=== PATIENT | female | born 1935 | race Caucasian/White ===

== ENCOUNTER → 2016-08-13 | Outpatient (CLI) | payer MEDICARE, OTHER ==
[2016-02-08 07:49] VITALS: BP 136/66
[~2016-08-13] MED LIST: ATOR20TA58 PO; CALC500T50 PO; CHOL10003 PO; CRAN450T2 PO; DOCU-27 PO; FLUO20CA8 PO; METH500T5 PO; MV,1TABL3 PO; OMEG10006 PO; OMEP20TA PO; UBID100C26 PO
--- NOTE | 2016-08-13 16:26 | RAD ---
PROCEDURE MRI of the lumbar spine without contrast 08/13/2016 HISTORY Low back pain with bilateral leg weakness and incontinence. TECHNIQUE Unenhanced T1 weighted, T2 weighted and inversion recovery sagittal and T2 weighted and T1 weighted axial images of the lumbar spine were obtained. FINDINGS Comparison is made to radiographs of the lumbar spine dated 05/08/2016. Very mild S-shaped curvature of the thoracolumbar spine is noted. Degenerative signal changes are seen involving all of the discs of the lumbar spine. Degenerative signal changes are seen within the marrow surrounding these discs. Loss of height of the L1-2, L3-4 and L4-5 discs is noted. Mild anterolisthesis of L3 in relation to L4 is noted. The conus medullaris is normal in morphology, position, and signal characteristics. A 1.5 centimeter perineural cyst is seen within the sacral spinal canal. At the L1-2 and L2-3 disc spaces there are mild generalized disc bulges. Degenerative changes are seen involving the facet joints bilaterally. There is mild ligamentum flavum hypertrophy bilaterally. These findings when combined do not result in significant central spinal canal or neural foraminal stenosis. At the L3-4 disc space there is a mild to moderate generalized disc bulge. Degenerative changes are seen involving the facet joints bilaterally. There is mild ligamentum flavum hypertrophy bilaterally. These findings when combined with prominence of the posteior epidural fat result in mild central spinal canal stenosis. No neural foraminal stenosis is seen. At the L4-5 disc space there is a mild generalized disc bulge. Degenerative changes are seen involving the facet joints bilaterally. There is mild ligamentum flavum hypertrophy bilaterally. These findings when combined do not result in significant central spinal canal or neural foraminal stenosis. At L5-S1 disc space there is a mild generalized disc bulge. Degenerative changes are seen involving the facet joints bilaterally. These findings when combined do not result in significant central spinal canal or neural foraminal stenosis. IMPRESSION The changes of degenerative disc disease are seen involving the lumbar spine. These findings result in mild central spinal canal stenosis at L3-4. No neural foraminal stenosis is seen. Electronically signed by: Rboerto Damon MD (Aug 13, 2016 16:24:29)
== END | disposition home or self-care (01) ==
LOC: MRI 12:28
PROVIDERS: ATTEND Orthopaedic Surgery Sports Medicine
DX: M51.36 Other intervertebral disc degeneration, lumbar region (principal); M48.06 Spinal stenosis, lumbar region
CPT/HCPCS: 72148

== ENCOUNTER 2018-05-29 17:28 | Emergency (ER) | payer MEDICARE ==
[~2018-05-29] VITALS: Ht 160 cm; Wt 68.0 kg
[~2018-05-29 17:28] MED LIST changes: -CALC500T50 PO; +CALC500T54 PO; +DOCU-109 PO; -DOCU-27 PO; -OMEP20TA PO; +OMEP20TA8 PO
--- NOTE | 2018-05-29 18:16 | PHYS DOC ---
Past Medical History Past Medical History: Anemia, Depression, GERD, High Cholesterol, Kidney Stone , P.U.D. Past Surgical History: Appendectomy, Cholecystectomy, Tubal ligation, Other Additional Past Surgical Histo: DENTAL IMPLANTS Alcohol Use: None Drug Use: None Adult General Chief Complaint Chief Complaint: RECTAL BLEED [facility] HPI Patient is a 83 year old female who presents with a complaint of bright red rectal bleeding. No abdominal pain. However, after the BM she noted bright red blood streaking her stool, on the toilet paper and dripping into the toilet. The patient also reports that 3 days ago she also had an episode of some bright red blood in her stool following a BM. She reports a hx of constipation and hemorrhoids. Reports that these episodes are similar to bleeding she has experienced with hemorrhoids in the past. She takes a stool softener daily. She denies any current abd pain, she also denies CP, SOB, weakness, lightheadedness , fevers, chills, vomiting, nausea and melena. No other Sx or complaints at this time. Review of Systems Review of Systems Constitutional: Denies fever or chills [] Eyes: Denies change in visual acuity, redness, or eye pain [] HENT: Denies nasal congestion or sore throat [] Respiratory: Denies cough or shortness of breath [] Cardiovascular: No additional information not addressed in [facility] [] GI: +bright red hematochezia, + constipation, No N/V/D. No abd pain : Denies dysuria or hematuria [] Musculoskeletal: Denies back pain or joint pain [] Integument: Denies rash or skin lesions [] Neurologic: Denies headache, focal weakness or sensory changes [] Endocrine: Denies polyuria or polydipsia [] All other systems were reviewed and found to be within normal limits, except as documented in this note. Allergies Allergies Allergies Coded Allergies Type Severity Reaction Last Updated Verified Sulfa (Sulfonamide Antibiotics) Allergy Intermediate 02/07/16 Yes iodine Allergy Intermediate 07/14/14 No shellfish derived Allergy Intermediate 07/14/14 Yes Physical Exam Physical Exam Constitutional: Well developed, well nourished, no acute distress, non-toxic appearance. [] HENT: Normocephalic, atraumatic, bilateral external ears normal, oropharynx moist, no oral exudates, nose normal. [] Eyes: PERRLA, EOMI, conjunctiva normal, no discharge. [] Neck: Normal range of motion, no tenderness, supple, no stridor. [] Cardiovascular:Heart rate regular rhythm, no murmur [] Lungs & Thorax: Bilateral breath sounds clear to auscultation [] Abdomen: Bowel sounds normal, soft, no tenderness, no masses, no pulsatile masses. [] Rectal exam: Brown stool heme positive by testing according to the lab. There is what I believe is a palpable internal hernia. No anus scope in the emergency room AVAILABLE Skin: Warm, dry, no erythema, no rash. [] Back: No tenderness, no CVA tenderness. [] Extremities: No tenderness, no cyanosis, no clubbing, ROM intact, no edema. [] Neurologic: Alert and oriented X 3, normal motor function, normal sensory function, no focal deficits noted. [] Psychologic: Affect normal, judgement normal, mood normal. [] Current Patient Data Vital Signs Vital Signs Date Time Temp Pulse Resp B/P (MAP) Pulse Ox O2 Delivery O2 Flow Rate FiO2 05/29/18 18:58 64 136/58 (84) 95 Room Air 05/29/18 17:41 97.8 18 97.8 Lab Values Laboratory Tests Test 05/29/18 18:19 White Blood Count 6.6 x10^3/uL (4.0-11.0) Red Blood Count 3.67 x10^6/uL (3.50-5.40) Hemoglobin 11.9 g/dL (12.0-15.5) L Hematocrit 34.2 % (36.0-47.0) L Mean Corpuscular Volume 93 fL (79-100) Mean Corpuscular Hemoglobin 32 pg (25-35) Mean Corpuscular Hemoglobin Concent 35 g/dL (31-37) Red Cell Distribution Width 12.8 % (11.5-14.5) Platelet Count 231 x10^3/uL (140-400) Neutrophils (%) (Auto) 49 % (31-73) Lymphocytes (%) (Auto) 38 % (24-48) Monocytes (%) (Auto) 9 % (0-9) Eosinophils (%) (Auto) 4 % (0-3) H Basophils (%) (Auto) 1 % (0-3) Neutrophils # (Auto) 3.2 x10^3uL (1.8-7.7) Lymphocytes # (Auto) 2.5 x10^3/uL (1.0-4.8) Monocytes # (Auto) 0.6 x10^3/uL (0.0-1.1) Eosinophils # (Auto) 0.2 x10^3/uL (0.0-0.7) Basophils # (Auto) 0.0 x10^3/uL (0.0-0.2) Stool Occult Blood Positive (NEG) Sodium Level 138 mmol/L (136-145) Potassium Level 3.7 mmol/L (3.5-5.1) Chloride Level 103 mmol/L (98-107) Carbon Dioxide Level 28 mmol/L (21-32) Anion Gap 7 (6-14) Blood Urea Nitrogen 19 mg/dL (7-20) Creatinine 0.8 mg/dL (0.6-1.0) Estimated GFR (Cockcroft-Gault) 68.8 BUN/Creatinine Ratio 24 (6-20) H Glucose Level 117 mg/dL (70-99) H Calcium Level 9.0 mg/dL (8.5-10.1) Total Bilirubin 0.2 mg/dL (0.2-1.0) Aspartate Amino Transferase (AST) 17 U/L (15-37) Alanine Aminotransferase (ALT) 23 U/L (14-59) Alkaline Phosphatase 88 U/L (46-116) Total Protein 7.0 g/dL (6.4-8.2) Albumin 3.5 g/dL (3.4-5.0) Albumin/Globulin Ratio 1.0 (1.0-1.7) Laboratory Tests 05/29/18 18:19 Laboratory Tests 05/29/18 18:19 EKG EKG [] Radiology/Procedures Radiology/Procedures [] Course & Med Decision Making Course & Med Decision Making Pertinent Labs and Imaging studies reviewed. (See chart for details) Assessment: 83 y/o female presents with a complaint of bright red rectal bleeding 1. Hemorrhoids 2. Constipation 3. Dehydration Plan: Rectal exam Fecal occult blood Labs-CBC, CMP I suspect hemorrhoid she just had some drops of blood today hemoglobin is stable I believe I feel an internal hemorrhoid. She was given prescription for conservative therapy and instructed and return precautions for any signs of risk GI bleeding. Terri Disclaimer Dragon Disclaimer This electronic medical record was generated, in whole or in part, using a voice recognition dictation system. Departure Departure Impression: Primary Impression: Bright red blood per rectum Disposition: HOME, SELF-CARE Condition: STABLE Referrals: JIMY MORGAN MD (PCP) Scripts Hydrocortisone Acetate (ANUSOL-HC) 25 Mg Supp.rect 1 SUPP RC BID, #14 SUPP Prov: TAQUERIA NJ MD 05/29/18 Psyllium Husk (METAMUCIL) 0.52 Gm Capsule 0.52 GM PO DAILY, #30 CAP Prov: TAQUERIA NJ MD 05/29/18 TAQUERIA NJ MD May 29, 2018 18:16
[2018-05-29 18:40] LABS: BASO % 1 % (0-3); EOS # 0.2 x10^3/uL (0.0-0.7); EOS % 4 % (0-3); HEMATOCRIT 34.2 % (36.0-47.0); HEMOGLOBIN 11.9 g/dL (12.0-15.5); LYMPH # 2.5 x10^3/uL (1.0-4.8); LYMPH % 38 % (24-48); MEAN CORPUSCULAR HEMOGLOBIN 32 pg (25-35); MEAN CORPUSCULAR HGB CONC 35 g/dL (31-37); MEAN CORPUSCULAR VOLUME 93 fL (79-100); MONO # 0.6 x10^3/uL (0.0-1.1); MONO % 9 % (0-9); NEUT # 3.2 x10^3uL (1.8-7.7); NEUT % 49 % (31-73); PLATELET COUNT 231 x10^3/uL (140-400); RED BLOOD COUNT 3.67 x10^6/uL (3.50-5.40); RED CELL DISTRIBUTION WIDTH 12.8 % (11.5-14.5); WHITE BLOOD COUNT 6.6 x10^3/uL (4.0-11.0)
[2018-05-29 18:44] LABS: FECAL OB PT POSITIVE (NEG)
[2018-05-29 18:47] LABS: CREATININE 0.8 mg/dL (0.6-1.0); GFR 68.8; POTASSIUM 3.7 mmol/L (3.5-5.1)
[2018-05-29 18:52] LABS: ALBUMIN 3.5 g/dL (3.4-5.0); TOTAL BILIRUBIN 0.2 mg/dL (0.2-1.0)
[2018-05-29] MEDS ORDERED: PSYL0.5215 PO (18:56)
[2018-05-29] MEDS ORDERED: HYDR25SU18 RC (18:56)
[2018-05-29 18:58] VITALS: BP 136/58
== END 2018-05-29 19:06 | disposition home or self-care (01) ==
LOC: ER 17:28
DX: K62.5 Hemorrhage of anus and rectum (principal); K21.9 Gastro-esophageal reflux disease without esophagitis; E78.00 Pure hypercholesterolemia, unspecified; Z90.89 Acquired absence of other organs; Z90.49 Acquired absence of other specified parts of digestive tract; Z98.51 Tubal ligation status; Z88.2 Allergy status to sulfonamides; Z91.041 Radiographic dye allergy status; Z91.013 Allergy to seafood
CPT/HCPCS: 36415; 80053; 82274; 85025; 99283

== ENCOUNTER 2019-05-22 02:40 | Inpatient (IN) | payer MEDICARE ==
[~2019-05-22] VITALS: Ht 160 cm; Wt 72.6 kg
[~2019-05-22 02:40] MED LIST changes: +HYDR25SU18 RC; +PSYL0.5215 PO
[2019-05-22] MEDS ORDERED: ONDANSETRON PF 4 MG/2 ML VIAL. ONE (02:57)
[2019-05-22] MEDS ORDERED: ONDANSETRON PF 4 MG/2 ML VIAL. IVP ONE (03:30)
[2019-05-22] MEDS ORDERED: IV NORMAL SALINE 1000ML BAG 1,000 ML IV ONE (03:30)
--- NOTE | 2019-05-22 03:34 | PHYS DOC ---
Past Medical History Past Medical History: Anemia, Depression, GERD, High Cholesterol, Kidney Stone, P.U.D. Past Surgical History: Appendectomy, Cholecystectomy, Tubal ligation, Other Additional Past Surgical Histo: DENTAL IMPLANTS Alcohol Use: None Drug Use: None Adult General Chief Complaint Chief Complaint: NAUSEA/VOMITING/[facility] HPI HPI 84-year-old female presents to the emergency department with complaints of vomiting and nausea. Patient states this started around 6 PM last night. She de nies any fever, abdominal pain, chest pain, shortness of breath. She denies any diarrhea. She does describe some bloating as well as gassiness. Her last BM was yesterday. She states she has a history of constipation. Patient denies any sick contacts. Nothing makes her symptoms worse, nothing makes her symptoms better. She states she's been unable to keep any liquids down. Review of Systems Review of Systems Constitutional: Denies fever or chills [] Respiratory: Denies cough or shortness of breath [] Cardiovascular: No additional information not addressed in HPI [] GI: abdominal bloating, nausea, vomiting, no bloody stools or diarrhea [] : Denies dysuria or hematuria [] Integument: Denies rash or skin lesions [] Neurologic: Denies headache, focal weakness or sensory changes [] All other systems were reviewed and found to be within normal limits, except as documented in this note. Current Medications Current Medications Current Medications Medications (Trade) Dose Ordered Sig/Juliette Start Time Stop Time Status Last Admin Dose Admin Ketorolac Tromethamine (Toradol 30mg Vial) 30 mg 1X ONCE 05/22/19 04:00 05/22/19 03:56 DC Ondansetron HCl (Zofran) 4 mg 1X ONCE 05/22/19 04:00 05/22/19 04:01 DC 05/22/19 04:21 4 MG Sodium Chloride 1,000 ml @ 1,000 mls/hr 1X ONCE 05/22/19 03:30 05/22/19 04:29 DC 05/22/19 03:00 1,000 MLS/HR Allergies Allergies Allergies Coded Allergies Type Severity Reaction Last Updated Verified Sulfa (Sulfonamide Antibiotics) Allergy Intermediate 02/07/16 Yes iodine Allergy Intermediate 07/14/14 No shellfish derived Allergy Intermediate 07/14/14 Yes Physical Exam Physical Exam Constitutional: Well developed, well nourished, no acute distress, non-toxic appearance. [] HENT: Normocephalic, atraumatic, bilateral external ears normal, oropharynx moist, no oral exudates, nose normal. [] Eyes: PERRLA, EOMI, conjunctiva normal, no discharge. [] Cardiovascular: Heart rate regular rhythm, no murmur [] Lungs & Thorax: Bilateral breath sounds clear to auscultation [] Abdomen: Bowel sounds normal, soft, no tenderness, no masses, no pulsatile masses. [] Skin: Warm, dry, no erythema, no rash. [] Back: No tenderness, no CVA tenderness. [] Extremities: No tenderness, no edema. [] Neurologic: Alert and oriented X 3, no focal deficits noted. [] Psychologic: Affect normal, judgement normal, mood normal. [] Current Patient Data Vital Signs Vital Signs Date Time Temp Pulse Resp B/P (MAP) Pulse Ox O2 Delivery O2 Flow Rate FiO2 05/22/19 04:13 94 25 132/59 (83) Room Air 05/22/19 03:13 96 05/22/19 02:45 97.9 97.9 Lab Values Laboratory Tests Test 05/22/19 02:53 05/22/19 04:15 White Blood Count 13.2 x10^3/uL (4.0-11.0) H Red Blood Count 4.12 x10^6/uL (3.50-5.40) Hemoglobin 12.7 g/dL (12.0-15.5) Hematocrit 38.2 % (36.0-47.0) Mean Corpuscular Volume 93 fL (79-100) Mean Corpuscular Hemoglobin 31 pg (25-35) Mean Corpuscular Hemoglobin Concent 33 g/dL (31-37) Red Cell Distribution Width 13.2 % (11.5-14.5) Platelet Count 223 x10^3/uL (140-400) Neutrophils (%) (Auto) 94 % (31-73) H Lymphocytes (%) (Auto) 2 % (24-48) L Monocytes (%) (Auto) 3 % (0-9) Eosinophils (%) (Auto) 0 % (0-3) Basophils (%) (Auto) 0 % (0-3) Neutrophils # (Auto) 12.5 x10^3/uL (1.8-7.7) H Lymphocytes # (Auto) 0.3 x10^3/uL (1.0-4.8) L Monocytes # (Auto) 0.4 x10^3/uL (0.0-1.1) Eosinophils # (Auto) 0.0 x10^3/uL (0.0-0.7) Basophils # (Auto) 0.0 x10^3/uL (0.0-0.2) Segmented Neutrophils % 79 % (35-66) H Band Neutrophils % 18 % (0-9) H Lymphocytes % 1 % (24-48) L Monocytes % 2 % (0-10) Platelet Estimate Adequate (ADEQUATE) Sodium Level 141 mmol/L (136-145) Potassium Level 4.0 mmol/L (3.5-5.1) Chloride Level 101 mmol/L (98-107) Carbon Dioxide Level 28 mmol/L (21-32) Anion Gap 12 (6-14) Blood Urea Nitrogen 25 mg/dL (7-20) H Creatinine 0.8 mg/dL (0.6-1.0) Estimated GFR (Cockcroft-Gault) 68.7 BUN/Creatinine Ratio 31 (6-20) H Glucose Level 219 mg/dL (70-99) H Calcium Level 9.0 mg/dL (8.5-10.1) Total Bilirubin 0.6 mg/dL (0.2-1.0) Aspartate Amino Transferase (AST) 22 U/L (15-37) Alanine Aminotransferase (ALT) 26 U/L (14-59) Alkaline Phosphatase 83 U/L (46-116) Total Protein 7.7 g/dL (6.4-8.2) Albumin 4.1 g/dL (3.4-5.0) Albumin/Globulin Ratio 1.1 (1.0-1.7) Urine Collection Type U cath Urine Color Yellow Urine Clarity Clear Urine pH 5.5 Urine Specific [place] 1.025 Urine Protein Negative mg/dL (NEG-TRACE) Urine Glucose (UA) Negative mg/dL (NEG) Urine Ketones (Stick) 15 mg/dL (NEG) Urine Blood Negative (NEG) Urine Nitrite Negative (NEG) Urine Bilirubin Negative (NEG) Urine Urobilinogen Dipstick 0.2 mg/dL (0.2 mg/dL) Urine Leukocyte Esterase Negative (NEG) Urine RBC Occ /HPF (0-2) Urine WBC Occ /HPF (0-4) Urine Squamous Epithelial Cells Occ /LPF Urine Bacteria 0 /HPF (0-FEW) Urine Mucus Marked /LPF Laboratory Tests 05/22/19 02:53 Laboratory Tests 05/22/19 02:53 EKG EKG [] Radiology/Procedures Radiology/Procedures [facility] [address] [place] [address] IMAGING REPORT Signed PATIENT: JAKOB GARNER JACCOUNT: [id number] : 1935 LOCATION: ER AGE: 84 SEX: F EXAM STATUS: REG ER ORD. PHYSICIAN: DANUTA VALENCIA MD REASON: abdominal pain, nausea/vomiting, iodine allergy (no contr) PROCEDURE: CT ABDOMEN PELVIS WO CONTRAST PQRS Compliance statement: One or more of the following individualized dose reduction techniques were utilized for this examination: 1. Automated exposure control. 2. Adjustment of the mA and/or kV according to patient size. 3. Use of iterative reconstruction technique. Indication: Pain, nausea and vomiting. TECHNIQUE: CT abdomen and pelvis without IV contrast with multiplanar reformats. COMPARISON: None FINDINGS: Limited evaluation of solid abdominal and pelvic organs due to lack of IV contrast. Heart is normal in size. No pericardial or pleural effusion. Mild by basilar atelectasis. Noncontrast appearance of the liver, spleen, pancreas, adrenals within normal limits. Status post cholecystectomy. No nephrolithiasis or hydronephrosis. No enlarged retroperitoneal or pelvic adenopathy. No free pelvic fluid or ascites. No bowel obstruction. Uterus is present. Urinary bladder demonstrates no radiopaque stone. No pneumoperitoneum. Small sliding hernia. No suspicious bony lesion. IMPRESSION: Limited evaluation of solid abdominal and pelvic organs due to lack of IV contrast. No bowel obstruction. No nephrolithiasis. Electronically signed by: Chelita Kyle DO (05/22/2019 4:59 AM) [facility] DICTATED and SIGNED BY: CHELITA KYLE DO DATE: 05/22/19 0459 [] Course & Med Decision Making Course & Med Decision Making Pertinent Labs and Imaging studies reviewed. (See chart for details) []84-year-old female presents to the emergency department with complaints of vomiting and nausea. Patient states this started around 6 PM last night. She denies any fever, abdominal pain, chest pain, shortness of breath. She denies any diarrhea. She does describe some bloating as well as gassiness. Her last BM was yesterday. She states she has a history of constipation. Patient denies any sick contacts. Nothing makes her symptoms worse, nothing makes her symptoms better. She states she's been unable to keep any liquids down. IVF, Zofran, bentyl - completed Vomiting improved however after po challenge, patient with continued nausea/vomiting CT pending Dragon Disclaimer Dragon Disclaimer This electronic medical record was generated, in whole or in part, using a voice recognition dictation system. Departure Departure Impression: Primary Impression: Intractable nausea and vomiting Disposition: ADMITTED INPATIENT Admitting Physician: CHANTAL Condition: STABLE Referrals: JIMY MORGAN MD (PCP) DANUTA VALENCIA MD May 22, 2019 03:33
--- NOTE | 2019-05-22 03:39 | RAD ---
Indication: Nausea vomiting TECHNIQUE: Single AP view of the abdomen pelvis COMPARISON: None FINDINGS: No abnormally dilated bowel loops. Status post cholecystectomy. No abnormal calcific densities projecting over the kidneys to suggest apparent renal stones. Visualized bones are within normal limits. IMPRESSION: No evidence of high-grade bowel obstruction. Electronically signed by: Chucho Kyle DO (05/22/2019 3:35 AM) [facility]
[2019-05-22 03:44] LABS: BASO % 0 % (0-3); EOS % 0 % (0-3); HEMATOCRIT 38.2 % (36.0-47.0); HEMOGLOBIN 12.7 g/dL (12.0-15.5); LYMPH # 0.3 x10^3/uL (1.0-4.8); LYMPH % 2 % (24-48); MEAN CORPUSCULAR HEMOGLOBIN 31 pg (25-35); MEAN CORPUSCULAR HGB CONC 33 g/dL (31-37); MEAN CORPUSCULAR VOLUME 93 fL (79-100); MONO # 0.4 x10^3/uL (0.0-1.1); MONO % 3 % (0-9); NEUT # 12.5 x10^3/uL (1.8-7.7); NEUT % 94 % (31-73); PLATELET COUNT 223 x10^3/uL (140-400); RED BLOOD COUNT 4.12 x10^6/uL (3.50-5.40); RED CELL DISTRIBUTION WIDTH 13.2 % (11.5-14.5); WHITE BLOOD COUNT 13.2 x10^3/uL (4.0-11.0)
[2019-05-22 03:55] LABS: ALBUMIN 4.1 g/dL (3.4-5.0); ALBUMIN/GLOBULIN RATIO 1.1 (1.0-1.7); CREATININE 0.8 mg/dL (0.6-1.0); GFR 68.7; TOTAL BILIRUBIN 0.6 mg/dL (0.2-1.0); TOTAL PROTEIN 7.7 g/dL (6.4-8.2)
[2019-05-22] MEDS ORDERED: KETOROLAC 30 MG/ML VIAL. IV ONE (04:00)
[2019-05-22] MEDS ORDERED: ONDANSETRON PF 4 MG/2 ML VIAL. IV ONE (04:00)
[2019-05-22 04:47] LABS: BILIRUBIN,URINE NEGATIVE (NEG); CLARITY,URINE CLEAR; COLOR,URINE YELLOW; NITRITE,URINE NEGATIVE (NEG); PH,URINE 5.5; PROTEIN,URINE NEGATIVE (NEG-TRACE); UROBILINOGEN,URINE 0.2 mg/dL (0.2 mg/dL)
[2019-05-22] MEDS ORDERED: ONDANSETRON PF 4 MG/2 ML VIAL. IV PRN ×2 (05:00→13:45)
[2019-05-22 05:01] LABS: BACTERIA,URINE 0 /HPF (0-FEW); RBC,URINE OCC /HPF (0-2); SQUAMOUS EPITHELIAL CELL,UR OCC /LPF; WBC,URINE OCC /HPF (0-4)
--- NOTE | 2019-05-22 05:02 | RAD ---
PQRS Compliance statement: One or more of the following individualized dose reduction techniques were utilized for this examination: 1. Automated exposure control. 2. Adjustment of the mA and/or kV according to patient size. 3. Use of iterative reconstruction technique. Indication: Pain, nausea and vomiting. TECHNIQUE: CT abdomen and pelvis without IV contrast with multiplanar reformats. COMPARISON: None FINDINGS: Limited evaluation of solid abdominal and pelvic organs due to lack of IV contrast. Heart is normal in size. No pericardial or pleural effusion. Mild by basilar atelectasis. Noncontrast appearance of the liver, spleen, pancreas, adrenals within normal limits. Status post cholecystectomy. No nephrolithiasis or hydronephrosis. No enlarged retroperitoneal or pelvic adenopathy. No free pelvic fluid or ascites. No bowel obstruction. Uterus is present. Urinary bladder demonstrates no radiopaque stone. No pneumoperitoneum. Small sliding hernia. No suspicious bony lesion. IMPRESSION: Limited evaluation of solid abdominal and pelvic organs due to lack of IV contrast. No bowel obstruction. No nephrolithiasis. Electronically signed by: Chucho Kyle DO (05/22/2019 4:59 AM) [facility]
[2019-05-22 07:00] VITALS: BP 104/38
--- NOTE | 2019-05-22 07:31 | PDOC1 ---
History and Physical Date of Admission Date of Admission DATE: 05/22/19 TIME: 07:31 Identification/Chief Complaint Chief Complaint SEEN IN ER WITH complaints of vomiting and nausea. Patient states this started around 6 PM 05/20 . She denies any fever, abdominal pain, chest pain, shortness of breath. She denies any diarrhea. She does describe some bloating as well as gassiness. She states she has a history of constipation. Patient denies any sick contacts. Nothing makes her symptoms worse, nothing makes her symptoms better. She states she's been unable to keep any liquids down. HAS HX OF REFLUX ESOPHAGITIS Past Medical History Past Medical History Past Medical History Past Medical History: Anemia, Depression, GERD, High Cholesterol, Kidney Stone, P.U.D. Past Surgical History: Appendectomy, Cholecystectomy, Tubal ligation, Other Additional Past Surgical Histo: DENTAL IMPLANTS Alcohol Use: None Drug Use: None PAST MEDICAL HISTORY: Depression, reflux, hyperlipidemia, cholelithiasis, hypertension, asthma. ALLERGIES: SULFA, IODINE. SOCIAL HISTORY: everyday smoker, does not drink. FAMILY HISTORY: Significant for organic heart disease with the siblings, gallbladder disease and emphysema// father. Family History Family History: High Cholestrol, Hypertension Social History Smoke: No ALCOHOL: none Drugs: None Current Problem List Problem List Problems Medical Problems: (1) Intractable nausea and vomiting Status: Acute Current Medications Current Medications Current Medications Ondansetron HCl (Zofran) 4 mg STK-MED ONCE .ROUTE ; Start 05/22/19 at 02:57; Stop 05/22/19 at 02:58; Status DC Sodium Chloride 1,000 ml @ 1,000 mls/hr 1X ONCE IV Last administered on 05/22/19at 03:00; Start 05/22/19 at 03:30; Stop 05/22/19 at 04:29; Status DC Ondansetron HCl (Zofran) 4 mg 1X ONCE IVP Last administered on 05/22/19at 03:00; Start 05/22/19 at 03:30; Stop 05/22/19 at 03:31; Status DC Ketorolac Tromethamine (Toradol 30mg Vial) 30 mg 1X ONCE IV ; Start 05/22/19 at 04:00; Stop 05/22/19 at 03:56; Status DC Ondansetron HCl (Zofran) 4 mg 1X ONCE IV Last administered on 05/22/19at 04:21; Start 05/22/19 at 04:00; Stop 05/22/19 at 04:01; Status DC Ondansetron HCl (Zofran) 4 mg PRN Q8HRS PRN IV NAUSEA/VOMITING 1ST CHOICE; Start 05/22/19 at 05:00; Stop 05/23/19 at 04:59 Lorazepam (Ativan Inj) 0.5 mg 1X ONCE IVP Last administered on 05/22/19at 05:22; Start 05/22/19 at 05:30; Stop 05/22/19 at 05:31; Status DC Lorazepam (Ativan Inj) 2 mg STK-MED ONCE .ROUTE ; Start 05/22/19 at 05:16; Stop 05/22/19 at 05:17; Status DC Active Scripts Active Anusol-Hc (Hydrocortisone Acetate) 25 Mg Supp.rect 1 Supp RC BID Metamucil (Psyllium Husk) 0.52 Gm Capsule 0.52 Gm PO DAILY Reported Vitamin D3 (Cholecalciferol (Vitamin D3)) 1,000 Unit Tablet 1 Tab PO DAILY Calcium (Calcium Carbonate) 500 Mg Tab.chew 500 Mg PO DAILY Pv Fish Oil 1,000 Mg Softgel ([place]-3 Fatty Acids/Vitamin E) 1,000 Mg Capsule 1 Cap PO DAILY Colace (Docusate Sodium) 100 Mg Capsule 1 Cap PO DAILY Fluoxetine Hcl 20 Mg Capsule 1 Cap PO DAILY Citrucel (Methylcellulose) 500 Mg Tablet 500 Mg PO DAILY Coq-10 (Ubidecarenone) 100 Mg Capsule 100 Mg PO DAILY Atorvastatin Calcium 20 Mg Tablet 1 Tab PO DAILY Geritol Complete Tablet (Mv, Min #36/Iron,Carbonyl/Fa) 1 Each Tablet 1 Each PO DAILY Cranberry (Cranberry Fruit Concentrate) 450 Mg Tablet 450 Mg PO DAILY Omeprazole 20 Mg Tablet.dr 1 Tab PO DAILY Allergies Allergies: Coded Allergies: Sulfa (Sulfonamide Antibiotics) (Verified Allergy, Intermediate, 02/07/16) iodine (Unverified Allergy, Intermediate, 07/14/14) shellfish derived (Verified Allergy, Intermediate, 07/14/14) ROS Review of System Review of Systems Review of Systems Constitutional: Denies fever or chills [] Respiratory: Denies cough or shortness of breath [] Cardiovascular: No additional information not addressed in HPI [] GI: abdominal bloating, nausea, vomiting, no bloody stools or diarrhea [] : Denies dysuria or hematuria [] Integument: Denies rash or skin lesions [] Neurologic: Denies headache, focal weakness or sensory changes [] 14 PT systems were reviewed and found to be within normal limits, except as documented Physical Exam Physical Exam Physical Exam Physical Exam Constitutional: Well developed, well nourished, no acute distress, non-toxic appearance. [] HENT: Normocephalic, atraumatic, bilateral external ears normal, oropharynx moist, no oral exudates, nose normal. [] Eyes: PERRLA, EOMI, conjunctiva normal, no discharge. [] Cardiovascular: Heart rate regular rhythm, no murmur [] Lungs & Thorax: Bilateral breath sounds clear to auscultation [] Abdomen: Bowel sounds normal, soft, no tenderness, no masses, no pulsatile masses. [] Skin: Warm, dry, no erythema, no rash. [] Back: No tenderness, no CVA tenderness. [] Extremities: No tenderness, no edema. [] Neurologic: Alert and oriented X 3, no focal deficits noted. [] Psychologic: Affect normal, judgement normal, mood normal. [] General: Alert, Oriented X3, Cooperative HEENT: Atraumatic Breasts: Not examined Abdomen: Soft Extremities: No cyanosis Neuro: Normal speech, Cranial nerves 3-12 NL Vitals Vitals Vital Signs Date Time Temp Pulse Resp B/P (MAP) Pulse Ox O2 Delivery O2 Flow Rate FiO2 05/22/19 05:13 82 15 146/63 (90) 93 Room Air 05/22/19 02:45 97.9 97.9 Labs Labs Laboratory Tests Test 05/22/19 02:53 05/22/19 04:15 White Blood Count 13.2 x10^3/uL (4.0-11.0) Red Blood Count 4.12 x10^6/uL (3.50-5.40) Hemoglobin 12.7 g/dL (12.0-15.5) Hematocrit 38.2 % (36.0-47.0) Mean Corpuscular Volume 93 fL (79-100) Mean Corpuscular Hemoglobin 31 pg (25-35) Mean Corpuscular Hemoglobin Concent 33 g/dL (31-37) Red Cell Distribution Width 13.2 % (11.5-14.5) Platelet Count 223 x10^3/uL (140-400) Neutrophils (%) (Auto) 94 % (31-73) Lymphocytes (%) (Auto) 2 % (24-48) Monocytes (%) (Auto) 3 % (0-9) Eosinophils (%) (Auto) 0 % (0-3) Basophils (%) (Auto) 0 % (0-3) Neutrophils # (Auto) 12.5 x10^3/uL (1.8-7.7) Lymphocytes # (Auto) 0.3 x10^3/uL (1.0-4.8) Monocytes # (Auto) 0.4 x10^3/uL (0.0-1.1) Eosinophils # (Auto) 0.0 x10^3/uL (0.0-0.7) Basophils # (Auto) 0.0 x10^3/uL (0.0-0.2) Sodium Level 141 mmol/L (136-145) Potassium Level 4.0 mmol/L (3.5-5.1) Chloride Level 101 mmol/L (98-107) Carbon Dioxide Level 28 mmol/L (21-32) Anion Gap 12 (6-14) Blood Urea Nitrogen 25 mg/dL (7-20) Creatinine 0.8 mg/dL (0.6-1.0) Estimated GFR (Cockcroft-Gault) 68.7 BUN/Creatinine Ratio 31 (6-20) Glucose Level 219 mg/dL (70-99) Calcium Level 9.0 mg/dL (8.5-10.1) Total Bilirubin 0.6 mg/dL (0.2-1.0) Aspartate Amino Transf (AST/SGOT) 22 U/L (15-37) Alanine Aminotransferase (ALT/SGPT) 26 U/L (14-59) Alkaline Phosphatase 83 U/L (46-116) Total Protein 7.7 g/dL (6.4-8.2) Albumin 4.1 g/dL (3.4-5.0) Albumin/Globulin Ratio 1.1 (1.0-1.7) Urine Collection Type U cath Urine Color Yellow Urine Clarity Clear Urine pH 5.5 Urine Specific [place] 1.025 Urine Protein Negative mg/dL (NEG-TRACE) Urine Glucose (UA) Negative mg/dL (NEG) Urine Ketones (Stick) 15 mg/dL (NEG) Urine Blood Negative (NEG) Urine Nitrite Negative (NEG) Urine Bilirubin Negative (NEG) Urine Urobilinogen Dipstick 0.2 mg/dL (0.2 mg/dL) Urine Leukocyte Esterase Negative (NEG) Urine RBC Occ /HPF (0-2) Urine WBC Occ /HPF (0-4) Urine Squamous Epithelial Cells Occ /LPF Urine Bacteria 0 /HPF (0-FEW) Urine Mucus Marked /LPF Laboratory Tests Test 05/22/19 02:53 05/22/19 04:15 White Blood Count 13.2 x10^3/uL (4.0-11.0) Red Blood Count 4.12 x10^6/uL (3.50-5.40) Hemoglobin 12.7 g/dL (12.0-15.5) Hematocrit 38.2 % (36.0-47.0) Mean Corpuscular Volume 93 fL (79-100) Mean Corpuscular Hemoglobin 31 pg (25-35) Mean Corpuscular Hemoglobin Concent 33 g/dL (31-37) Red Cell Distribution Width 13.2 % (11.5-14.5) Platelet Count 223 x10^3/uL (140-400) Neutrophils (%) (Auto) 94 % (31-73) Lymphocytes (%) (Auto) 2 % (24-48) Monocytes (%) (Auto) 3 % (0-9) Eosinophils (%) (Auto) 0 % (0-3) Basophils (%) (Auto) 0 % (0-3) Neutrophils # (Auto) 12.5 x10^3/uL (1.8-7.7) Lymphocytes # (Auto) 0.3 x10^3/uL (1.0-4.8) Monocytes # (Auto) 0.4 x10^3/uL (0.0-1.1) Eosinophils # (Auto) 0.0 x10^3/uL (0.0-0.7) Basophils # (Auto) 0.0 x10^3/uL (0.0-0.2) Sodium Level 141 mmol/L (136-145) Potassium Level 4.0 mmol/L (3.5-5.1) Chloride Level 101 mmol/L (98-107) Carbon Dioxide Level 28 mmol/L (21-32) Anion Gap 12 (6-14) Blood Urea Nitrogen 25 mg/dL (7-20) Creatinine 0.8 mg/dL (0.6-1.0) Estimated GFR (Cockcroft-Gault) 68.7 BUN/Creatinine Ratio 31 (6-20) Glucose Level 219 mg/dL (70-99) Calcium Level 9.0 mg/dL (8.5-10.1) Total Bilirubin 0.6 mg/dL (0.2-1.0) Aspartate Amino Transf (AST/SGOT) 22 U/L (15-37) Alanine Aminotransferase (ALT/SGPT) 26 U/L (14-59) Alkaline Phosphatase 83 U/L (46-116) Total Protein 7.7 g/dL (6.4-8.2) Albumin 4.1 g/dL (3.4-5.0) Albumin/Globulin Ratio 1.1 (1.0-1.7) Urine Collection Type U cath Urine Color Yellow Urine Clarity Clear Urine pH 5.5 Urine Specific [place] 1.025 Urine Protein Negative mg/dL (NEG-TRACE) Urine Glucose (UA) Negative mg/dL (NEG) Urine Ketones (Stick) 15 mg/dL (NEG) Urine Blood Negative (NEG) Urine Nitrite Negative (NEG) Urine Bilirubin Negative (NEG) Urine Urobilinogen Dipstick 0.2 mg/dL (0.2 mg/dL) Urine Leukocyte Esterase Negative (NEG) Urine RBC Occ /HPF (0-2) Urine WBC Occ /HPF (0-4) Urine Squamous Epithelial Cells Occ /LPF Urine Bacteria 0 /HPF (0-FEW) Urine Mucus Marked /LPF Images Images PATIENT: JAKOB GARNER JACCOUNT: [id number] : 1935 LOCATION: ER AGE: 84 SEX: F EXAM STATUS: REG ER ORD. PHYSICIAN: DANUTA VALENCIA MD REASON: abdominal pain, nausea/vomiting, iodine allergy (no contr) PROCEDURE: CT ABDOMEN PELVIS WO CONTRAST PQRS Compliance statement: One or more of the following individualized dose reduction techniques were utilized for this examination: 1. Automated exposure control. 2. Adjustment of the mA and/or kV according to patient size. 3. Use of iterative reconstruction technique. Indication: Pain, nausea and vomiting. TECHNIQUE: CT abdomen and pelvis without IV contrast with multiplanar reformats. COMPARISON: None FINDINGS: Limited evaluation of solid abdominal and pelvic organs due to lack of IV contrast. Heart is normal in size. No pericardial or pleural effusion. Mild by basilar atelectasis. Noncontrast appearance of the liver, spleen, pancreas, adrenals within normal limits. Status post cholecystectomy. No nephrolithiasis or hydronephrosis. No enlarged retroperitoneal or pelvic adenopathy. No free pelvic fluid or ascites. No bowel obstruction. Uterus is present. Urinary bladder demonstrates no radiopaque stone. No pneumoperitoneum. Small sliding hernia. No suspicious bony lesion. IMPRESSION: Limited evaluation of solid abdominal and pelvic organs due to lack of IV contrast. No bowel obstruction. No nephrolithiasis. Electronically signed by: Chelita Kyle DO (05/22/2019 4:59 AM) [facility] DICTATED and SIGNED BY: CHELITA KYLE DO PATHOLOGY REPORT * * * * * * * * FINAL DIAGNOSIS: Esophageal biopsy, distal esophagus: - Segments of hyperplastic squamous esophageal mucosa and segment of gastric mucosa showing mild chronic inflammation, consistent with reflux esophagitis. COMMENT: Sections of the distal esophageal biopsy primarily reveal segments of hyperplastic squamous esophageal mucosa. There is also a segment of gastric mucosa showing mild chronic inflammation. The findings are consistent with reflux esophagitis. There is no evidence of Bojorquez's change, dysplasia, or malignancy. (JPM:mggordy; d/t: 02/09/16) VTE Prophylaxis Ordered VTE Prophylaxis Devices: Yes VTE Pharmacological Prophylaxi: Yes Assessment/Plan Assessment/Plan IMPRESSION 1. INTRACTABLE VOMITING 2. self-limited gastroenteritis. 3. HX REFLUX ESOPHAGITIS 4. No bowel obstruction. 5. No nephrolithiasis. ON CT 05/21 6. HYPERLIPIDEMIA PLAN IV FLUID SUPPORT IV PROTONIX GI CONSULT SUPPORTIVE MEASURES DVT PROPHYLAXIS STEPHEN BOATENG MD May 22, 2019 07:31
--- NOTE | 2019-05-22 09:23 | PDOC2 ---
GI CONSULT Reason For Consult: N/v HPI: HPI: 84 y/o female who reports significant vomiting since last night - "green." Denies precipitating events. Concerned because she has lost her voice. Might have had some stomach cramping that has resolved. Feeling better this morning, would like a coke. H/o GERD on omeprazole QD. No dysphagia. No hematemesis. No chronic n/v or abd pain. No diarrhea, hematochezia, or melena. H/o constipation controlled w/ stool softeners and laxatives. Lost a few pounds - attributes to dental surgeries. Previous EGDs and colonoscopies w/ Dr. Bautista and in [place], also reports h/o PUD. S/p cholecystectomy. Denies liver and pancreas history. No NSAIDs. PMH: PMH: HTN, HLD, nephrolithiasis, GERD, hiatal hernia cholecystectomy, appendectomy, tubal ligation, skin cancer removal, cataract removal FH: Family History: No pertinent hx Social History: Smoke: <1 pack per day ALCOHOL: rare Drugs: None ROS: GEN: Denies fevers, chills, sweats HEENT: +hoarseness CV: Denies chest pain RESP: Denies shortness of air, cough GI: Per HPI : Denies hematuria, dysuria ENDO: Denies weight changes NEURO: Denies confusion, dizziness MSK: Denies weakness, joint pain/swelling SKIN: Denies jaundice, pruritus Vitals: Vitals: Vital Signs Date Time Temp Pulse Resp B/P (MAP) Pulse Ox O2 Delivery O2 Flow Rate FiO2 05/22/19 07:00 98.2 77 16 104/38 (60) 90 Nasal Cannula 2.0 98.2 Labs: Labs: Laboratory Tests Test 05/22/19 02:53 05/22/19 04:15 White Blood Count 13.2 x10^3/uL (4.0-11.0) Red Blood Count 4.12 x10^6/uL (3.50-5.40) Hemoglobin 12.7 g/dL (12.0-15.5) Hematocrit 38.2 % (36.0-47.0) Mean Corpuscular Volume 93 fL (79-100) Mean Corpuscular Hemoglobin 31 pg (25-35) Mean Corpuscular Hemoglobin Concent 33 g/dL (31-37) Red Cell Distribution Width 13.2 % (11.5-14.5) Platelet Count 223 x10^3/uL (140-400) Neutrophils (%) (Auto) 94 % (31-73) Lymphocytes (%) (Auto) 2 % (24-48) Monocytes (%) (Auto) 3 % (0-9) Eosinophils (%) (Auto) 0 % (0-3) Basophils (%) (Auto) 0 % (0-3) Neutrophils # (Auto) 12.5 x10^3/uL (1.8-7.7) Lymphocytes # (Auto) 0.3 x10^3/uL (1.0-4.8) Monocytes # (Auto) 0.4 x10^3/uL (0.0-1.1) Eosinophils # (Auto) 0.0 x10^3/uL (0.0-0.7) Basophils # (Auto) 0.0 x10^3/uL (0.0-0.2) Sodium Level 141 mmol/L (136-145) Potassium Level 4.0 mmol/L (3.5-5.1) Chloride Level 101 mmol/L (98-107) Carbon Dioxide Level 28 mmol/L (21-32) Anion Gap 12 (6-14) Blood Urea Nitrogen 25 mg/dL (7-20) Creatinine 0.8 mg/dL (0.6-1.0) Estimated GFR (Cockcroft-Gault) 68.7 BUN/Creatinine Ratio 31 (6-20) Glucose Level 219 mg/dL (70-99) Calcium Level 9.0 mg/dL (8.5-10.1) Total Bilirubin 0.6 mg/dL (0.2-1.0) Aspartate Amino Transf (AST/SGOT) 22 U/L (15-37) Alanine Aminotransferase (ALT/SGPT) 26 U/L (14-59) Alkaline Phosphatase 83 U/L (46-116) Total Protein 7.7 g/dL (6.4-8.2) Albumin 4.1 g/dL (3.4-5.0) Albumin/Globulin Ratio 1.1 (1.0-1.7) Urine Collection Type U cath Urine Color Yellow Urine Clarity Clear Urine pH 5.5 Urine Specific [place] 1.025 Urine Protein Negative mg/dL (NEG-TRACE) Urine Glucose (UA) Negative mg/dL (NEG) Urine Ketones (Stick) 15 mg/dL (NEG) Urine Blood Negative (NEG) Urine Nitrite Negative (NEG) Urine Bilirubin Negative (NEG) Urine Urobilinogen Dipstick 0.2 mg/dL (0.2 mg/dL) Urine Leukocyte Esterase Negative (NEG) Urine RBC Occ /HPF (0-2) Urine WBC Occ /HPF (0-4) Urine Squamous Epithelial Cells Occ /LPF Urine Bacteria 0 /HPF (0-FEW) Urine Mucus Marked /LPF Allergies: Coded Allergies: Sulfa (Sulfonamide Antibiotics) (Verified Allergy, Intermediate, 02/07/16) iodine (Unverified Allergy, Intermediate, 07/14/14) shellfish derived (Verified Allergy, Intermediate, 07/14/14) Medications: Current Medications Medications (Trade) Dose Ordered Sig/Juliette Route PRN Reason Start Time Stop Time Status Last Admin Dose Admin Sodium Chloride 1,000 ml @ 1,000 mls/hr 1X ONCE IV 05/22/19 03:30 05/22/19 04:29 DC 05/22/19 03:00 Ondansetron HCl (Zofran) 4 mg 1X ONCE IVP 05/22/19 03:30 05/22/19 03:31 DC 05/22/19 03:00 Ondansetron HCl (Zofran) 4 mg 1X ONCE IV 05/22/19 04:00 05/22/19 04:01 DC 05/22/19 04:21 Lorazepam (Ativan Inj) 0.5 mg 1X ONCE IVP 05/22/19 05:30 05/22/19 05:31 DC 05/22/19 05:22 Imaging: Imaging: KUB IMPRESSION: No evidence of high-grade bowel obstruction. CT A/P IMPRESSION: Limited evaluation of solid abdominal and pelvic organs due to lack of IV contrast. No bowel obstruction. No nephrolithiasis. PE: GEN: NAD HEENT: hoarseness LUNGS: CTAB HEART: RRR ABD: NABS, S/ND/NT EXTREMITY: No edema SKIN: No rashes, no jaundice NEURO/PSYCH: A & O 3 A/P: A/P: N/v, abd pain - better GERD, h/o PUD CRC screen - reportedly UTD Constipation - controlled S/p cholecystectomy -- ?infectious Try clears, ADAT. Add PPI - IV for now, change to PO when reliably eating. Resume IVF, defer management to primary. Have asked for records of most recent scopes. NADEGE CASTILLO May 22, 2019 09:23
[2019-05-22] MEDS ORDERED: PANTOPRAZOLE IV PUSH 40 MG VIAL. IVP SCH (09:30)
[2019-05-22] MEDS ORDERED: POLYETHYLENE GLYCOL 3350 17 GM PACKET. PO PRN (09:30)
[2019-05-22 11:00] VITALS: BP 103/84
[2019-05-22 11:06] LABS: % BANDS 18 % (0-9); % LYMPHS 1 % (24-48); % MONOS 2 % (0-10); % SEGS 79 % (35-66)
[2019-05-22 11:07] LABS: PLT ESTIMATE ADEQUATE (ADEQUATE)
[2019-05-22] MEDS ORDERED: DOCUSATE SODIUM 100 MG CAPSULE. PO PRN (13:45)
[2019-05-22] MEDS ORDERED: cloNIDine HCL 0.1 MG TABLET PO PRN (13:45)
[2019-05-22] MEDS ORDERED: LORazepam 0.5 MG TABLET PO PRN (13:45)
[2019-05-22] MEDS ORDERED: 0.9 % SODIUM CHLORIDE 10 ML DISP.SYRIN. IV PRN (13:45)
[2019-05-22] MEDS ORDERED: guaiFENesin ORAL 200 MG/10 ML LIQUID. PO PRN (13:45)
[2019-05-22] MEDS ORDERED: ALBUTEROL SULFATE 2.5 MG/3 ML NEBU. NEB PRN (13:45)
[2019-05-22] MEDS ORDERED: ACETAMINOPHEN 325 MG TABLET. PO PRN (13:45)
[2019-05-22 15:00] VITALS: BP 98/65
[2019-05-22] MEDS: IV NORMAL SALINE 1000ML BAG 1,000 ML IV SCH (15:49)
[2019-05-22] MEDS: MULTIVITAMIN with MINERAL TABLET. PO SCH (15:52)
[2019-05-22] MEDS: DOCUSATE SODIUM 100 MG CAPSULE. PO SCH (15:52)
[2019-05-22] MEDS: CHOLECALCIFEROL (VITAMIN D3) 1,000 UNIT TABLET PO SCH (15:52)
[2019-05-22] MEDS: OMEGA-3 FATTY ACIDS/FISH OIL 1,000 MG CAPSULE. PO SCH (15:52)
[2019-05-22] MEDS: FLUoxetine HCL 20 MG CAPSULE PO SCH (15:52)
[2019-05-22] MEDS: CALCIUM CARBONATE 500 MG TABLET PO SCH (15:52)
[2019-05-22] MEDS: PSYLLIUM HUSK (SUGAR FREE) 1 PKT PACKET PO SCH (15:52)
[2019-05-22] MEDS: ENOXAPARIN 40 MG/0.4 ML SYRINGE. SQ SCH (15:53)
--- NOTE | 2019-05-22 16:04 | NUR ---
SW following for discharge planning. Chart reviewed, discussed with RN. Pt is from home alone. PT/OT ordered, GI following. SW will continue to follow.
[2019-05-22 19:00] VITALS: BP 113/38
[2019-05-22] MEDS: HYDROCORTISONE ACETATE 25 MG SUPP.RECT RC SCH (21:57)
[2019-05-22 23:04] VITALS: BP 106/32
[2019-05-23 03:11] VITALS: BP 91/41
[2019-05-23 04:23] LABS: BASO % 0 % (0-3); EOS % 0 % (0-3); HEMATOCRIT 30.9 % (36.0-47.0); HEMOGLOBIN 10.2 g/dL (12.0-15.5); LYMPH % 17 % (24-48); MEAN CORPUSCULAR HEMOGLOBIN 31 pg (25-35); MEAN CORPUSCULAR HGB CONC 33 g/dL (31-37); MEAN CORPUSCULAR VOLUME 93 fL (79-100); MONO # 0.3 x10^3/uL (0.0-1.1); MONO % 6 % (0-9); NEUT # 4.4 x10^3/uL (1.8-7.7); NEUT % 77 % (31-73); PLATELET COUNT 164 x10^3/uL (140-400); RED BLOOD COUNT 3.32 x10^6/uL (3.50-5.40); RED CELL DISTRIBUTION WIDTH 13.6 % (11.5-14.5); WHITE BLOOD COUNT 5.8 x10^3/uL (4.0-11.0)
[2019-05-23 04:48] LABS: ALBUMIN 2.8 g/dL (3.4-5.0); ALBUMIN/GLOBULIN RATIO 0.9 (1.0-1.7); CALCIUM 8.1 mg/dL (8.5-10.1); CREATININE 0.8 mg/dL (0.6-1.0); GFR 68.7; POTASSIUM 3.6 mmol/L (3.5-5.1); TOTAL BILIRUBIN 0.5 mg/dL (0.2-1.0); TOTAL PROTEIN 5.8 g/dL (6.4-8.2)
[2019-05-23] MEDS: IV NORMAL SALINE 1000ML BAG 1,000 ML IV SCH (05:58)
[2019-05-23 07:00] VITALS: BP 108/31
[2019-05-23] MEDS ORDERED: PANTOPRAZOLE 40 MG TABLET.DR. PO SCH (07:30)
[2019-05-23] MEDS: OMEGA-3 FATTY ACIDS/FISH OIL 1,000 MG CAPSULE. PO SCH (08:14)
[2019-05-23] MEDS: DOCUSATE SODIUM 100 MG CAPSULE. PO SCH (08:14)
[2019-05-23] MEDS: HYDROCORTISONE ACETATE 25 MG SUPP.RECT RC SCH (08:15)
[2019-05-23] MEDS: CALCIUM CARBONATE 500 MG TABLET PO SCH (08:15)
[2019-05-23] MEDS: MULTIVITAMIN with MINERAL TABLET. PO SCH (08:15)
[2019-05-23] MEDS: PSYLLIUM HUSK (SUGAR FREE) 1 PKT PACKET PO SCH (08:15)
[2019-05-23] MEDS: CHOLECALCIFEROL (VITAMIN D3) 1,000 UNIT TABLET PO SCH (08:15)
[2019-05-23] MEDS: FLUoxetine HCL 20 MG CAPSULE PO SCH (08:15)
[2019-05-23] MEDS ORDERED: NON FORMULARY ITEM (Ubidecarenone (Coq-10) 100 MG) PO SCH (09:00)
[2019-05-23] MEDS ORDERED: METHYLCELLULOSE 500 MG PO SCH (09:00)
[2019-05-23] MEDS: ENOXAPARIN 40 MG/0.4 ML SYRINGE. SQ SCH (09:00)
--- NOTE | 2019-05-23 10:58 | PDOC ---
[employer] PROGRESS NOTE Chief Complaint Chief Complaint INTRACTABLE VOMITING self-limited gastroenteritis. HX REFLUX ESOPHAGITIS No bowel obstruction. No nephrolithiasis. ON CT 05/21 HYPERLIPIDEMIA History of Present Illness History of Present Illness 05/23/19 Pt seen and examined by me Pt states that she feels better, has not vomited today. WHITNEY RN Chart reviewed Vitals/I&O Vitals/I&O: Vital Signs Date Time Temp Pulse Resp B/P (MAP) Pulse Ox O2 Delivery O2 Flow Rate FiO2 05/23/19 07:00 98.0 62 20 108/31 (56) 90 Room Air 98.0 05/22/19 07:00 2.0 I & O 05/22/19 05/22/19 05/23/19 15:00 23:00 07:00 Intake Total 1000 ml Balance 1000 ml Physical Exam General: Alert, Oriented X3, Cooperative, No acute distress Heart: Regular rate, Normal S1, Normal S2 Lungs: Clear Abdomen: Soft Extremities: No cyanosis Skin: No rashes Labs Labs: Laboratory Tests Test 05/23/19 04:10 White Blood Count 5.8 x10^3/uL (4.0-11.0) Red Blood Count 3.32 x10^6/uL (3.50-5.40) Hemoglobin 10.2 g/dL (12.0-15.5) Hematocrit 30.9 % (36.0-47.0) Mean Corpuscular Volume 93 fL (79-100) Mean Corpuscular Hemoglobin 31 pg (25-35) Mean Corpuscular Hemoglobin Concent 33 g/dL (31-37) Red Cell Distribution Width 13.6 % (11.5-14.5) Platelet Count 164 x10^3/uL (140-400) Neutrophils (%) (Auto) 77 % (31-73) Lymphocytes (%) (Auto) 17 % (24-48) Monocytes (%) (Auto) 6 % (0-9) Eosinophils (%) (Auto) 0 % (0-3) Basophils (%) (Auto) 0 % (0-3) Neutrophils # (Auto) 4.4 x10^3/uL (1.8-7.7) Lymphocytes # (Auto) 1.0 x10^3/uL (1.0-4.8) Monocytes # (Auto) 0.3 x10^3/uL (0.0-1.1) Eosinophils # (Auto) 0.0 x10^3/uL (0.0-0.7) Basophils # (Auto) 0.0 x10^3/uL (0.0-0.2) Sodium Level 138 mmol/L (136-145) Potassium Level 3.6 mmol/L (3.5-5.1) Chloride Level 104 mmol/L (98-107) Carbon Dioxide Level 26 mmol/L (21-32) Anion Gap 8 (6-14) Blood Urea Nitrogen 23 mg/dL (7-20) Creatinine 0.8 mg/dL (0.6-1.0) Estimated GFR (Cockcroft-Gault) 68.7 BUN/Creatinine Ratio 29 (6-20) Glucose Level 106 mg/dL (70-99) Calcium Level 8.1 mg/dL (8.5-10.1) Total Bilirubin 0.5 mg/dL (0.2-1.0) Aspartate Amino Transf (AST/SGOT) 26 U/L (15-37) Alanine Aminotransferase (ALT/SGPT) 19 U/L (14-59) Alkaline Phosphatase 55 U/L (46-116) Total Protein 5.8 g/dL (6.4-8.2) Albumin 2.8 g/dL (3.4-5.0) Albumin/Globulin Ratio 0.9 (1.0-1.7) Review of Systems Review of Systems: (-) vomiting, CP, SOB Assessment and Plan Assessmemt and Plan Problems Medical Problems: (1) Intractable nausea and vomiting Status: Acute Plan: PO challenge home meds PT/OT dvt ppx full code Comment Review of Relevant I have reviewed the following items khalida (where applicable) has been applied. Medications: Current Medications Medications (Trade) Dose Ordered Sig/Juliette Route PRN Reason Start Time Stop Time Status Last Admin Dose Admin Vitamin D (Vitamin D3) 1,000 unit DAILY PO 05/22/19 14:00 05/22/19 15:52 Docusate Sodium (Colace) 100 mg DAILY PO 05/22/19 14:00 05/22/19 15:52 Fluoxetine HCl (PROzac) 20 mg DAILY PO 05/22/19 14:00 05/22/19 15:52 Hydrocortisone Acetate (Anucort-Hc) 25 mg BID RC 05/22/19 21:00 05/22/19 21:57 Fish Oil (Fish Oil) 1,000 mg DAILY PO 05/22/19 14:00 05/22/19 15:52 Calcium Carbonate/ Glycine (Oscal) 500 mg DAILY PO 05/22/19 14:00 05/22/19 15:52 Multivitamins (Thera M Plus) 1 tab DAILY PO 05/22/19 14:00 05/22/19 15:52 Psyllium Hydrophilic Mucilloid (Metamucil Fiber Packet) 1 pkt DAILY PO 05/22/19 14:00 05/22/19 15:52 Sodium Chloride 1,000 ml @ 65 mls/hr [id number] IV 05/22/19 13:34 05/23/19 05:58 Enoxaparin Sodium (Lovenox 40mg Syringe) 40 mg DAILY SQ 05/22/19 14:00 05/22/19 15:53 OBED VORA III DO May 23, 2019 10:58
[2019-05-23 11:00] VITALS: BP 104/35
--- NOTE | 2019-05-23 13:22 | PDOC ---
G I PROGRESS NOTE Reason for Follow-up N/V Subjective Feeling better Physical Exam Lungs clear CV S1 s2 Abd +BS, soft, nontender Review of Relevant I have reviewed the following items khalida (where applicable) has been applied. Labs Laboratory Tests Test 05/22/19 02:53 05/22/19 04:15 05/23/19 04:10 White Blood Count 13.2 x10^3/uL (4.0-11.0) 5.8 x10^3/uL (4.0-11.0) Red Blood Count 4.12 x10^6/uL (3.50-5.40) 3.32 x10^6/uL (3.50-5.40) Hemoglobin 12.7 g/dL (12.0-15.5) 10.2 g/dL (12.0-15.5) Hematocrit 38.2 % (36.0-47.0) 30.9 % (36.0-47.0) Mean Corpuscular Volume 93 fL (79-100) 93 fL (79-100) Mean Corpuscular Hemoglobin 31 pg (25-35) 31 pg (25-35) Mean Corpuscular Hemoglobin Concent 33 g/dL (31-37) 33 g/dL (31-37) Red Cell Distribution Width 13.2 % (11.5-14.5) 13.6 % (11.5-14.5) Platelet Count 223 x10^3/uL (140-400) 164 x10^3/uL (140-400) Neutrophils (%) (Auto) 94 % (31-73) 77 % (31-73) Lymphocytes (%) (Auto) 2 % (24-48) 17 % (24-48) Monocytes (%) (Auto) 3 % (0-9) 6 % (0-9) Eosinophils (%) (Auto) 0 % (0-3) 0 % (0-3) Basophils (%) (Auto) 0 % (0-3) 0 % (0-3) Neutrophils # (Auto) 12.5 x10^3/uL (1.8-7.7) 4.4 x10^3/uL (1.8-7.7) Lymphocytes # (Auto) 0.3 x10^3/uL (1.0-4.8) 1.0 x10^3/uL (1.0-4.8) Monocytes # (Auto) 0.4 x10^3/uL (0.0-1.1) 0.3 x10^3/uL (0.0-1.1) Eosinophils # (Auto) 0.0 x10^3/uL (0.0-0.7) 0.0 x10^3/uL (0.0-0.7) Basophils # (Auto) 0.0 x10^3/uL (0.0-0.2) 0.0 x10^3/uL (0.0-0.2) Segmented Neutrophils % 79 % (35-66) Band Neutrophils % 18 % (0-9) Lymphocytes % 1 % (24-48) Monocytes % 2 % (0-10) Platelet Estimate Adequate (ADEQUATE) Sodium Level 141 mmol/L (136-145) 138 mmol/L (136-145) Potassium Level 4.0 mmol/L (3.5-5.1) 3.6 mmol/L (3.5-5.1) Chloride Level 101 mmol/L (98-107) 104 mmol/L (98-107) Carbon Dioxide Level 28 mmol/L (21-32) 26 mmol/L (21-32) Anion Gap 12 (6-14) 8 (6-14) Blood Urea Nitrogen 25 mg/dL (7-20) 23 mg/dL (7-20) Creatinine 0.8 mg/dL (0.6-1.0) 0.8 mg/dL (0.6-1.0) Estimated GFR (Cockcroft-Gault) 68.7 68.7 BUN/Creatinine Ratio 31 (6-20) 29 (6-20) Glucose Level 219 mg/dL (70-99) 106 mg/dL (70-99) Calcium Level 9.0 mg/dL (8.5-10.1) 8.1 mg/dL (8.5-10.1) Total Bilirubin 0.6 mg/dL (0.2-1.0) 0.5 mg/dL (0.2-1.0) Aspartate Amino Transf (AST/SGOT) 22 U/L (15-37) 26 U/L (15-37) Alanine Aminotransferase (ALT/SGPT) 26 U/L (14-59) 19 U/L (14-59) Alkaline Phosphatase 83 U/L (46-116) 55 U/L (46-116) Total Protein 7.7 g/dL (6.4-8.2) 5.8 g/dL (6.4-8.2) Albumin 4.1 g/dL (3.4-5.0) 2.8 g/dL (3.4-5.0) Albumin/Globulin Ratio 1.1 (1.0-1.7) 0.9 (1.0-1.7) Urine Collection Type U cath Urine Color Yellow Urine Clarity Clear Urine pH 5.5 Urine Specific [place] 1.025 Urine Protein Negative mg/dL (NEG-TRACE) Urine Glucose (UA) Negative mg/dL (NEG) Urine Ketones (Stick) 15 mg/dL (NEG) Urine Blood Negative (NEG) Urine Nitrite Negative (NEG) Urine Bilirubin Negative (NEG) Urine Urobilinogen Dipstick 0.2 mg/dL (0.2 mg/dL) Urine Leukocyte Esterase Negative (NEG) Urine RBC Occ /HPF (0-2) Urine WBC Occ /HPF (0-4) Urine Squamous Epithelial Cells Occ /LPF Urine Bacteria 0 /HPF (0-FEW) Urine Mucus Marked /LPF Laboratory Tests Test 05/23/19 04:10 White Blood Count 5.8 x10^3/uL (4.0-11.0) Red Blood Count 3.32 x10^6/uL (3.50-5.40) Hemoglobin 10.2 g/dL (12.0-15.5) Hematocrit 30.9 % (36.0-47.0) Mean Corpuscular Volume 93 fL (79-100) Mean Corpuscular Hemoglobin 31 pg (25-35) Mean Corpuscular Hemoglobin Concent 33 g/dL (31-37) Red Cell Distribution Width 13.6 % (11.5-14.5) Platelet Count 164 x10^3/uL (140-400) Neutrophils (%) (Auto) 77 % (31-73) Lymphocytes (%) (Auto) 17 % (24-48) Monocytes (%) (Auto) 6 % (0-9) Eosinophils (%) (Auto) 0 % (0-3) Basophils (%) (Auto) 0 % (0-3) Neutrophils # (Auto) 4.4 x10^3/uL (1.8-7.7) Lymphocytes # (Auto) 1.0 x10^3/uL (1.0-4.8) Monocytes # (Auto) 0.3 x10^3/uL (0.0-1.1) Eosinophils # (Auto) 0.0 x10^3/uL (0.0-0.7) Basophils # (Auto) 0.0 x10^3/uL (0.0-0.2) Sodium Level 138 mmol/L (136-145) Potassium Level 3.6 mmol/L (3.5-5.1) Chloride Level 104 mmol/L (98-107) Carbon Dioxide Level 26 mmol/L (21-32) Anion Gap 8 (6-14) Blood Urea Nitrogen 23 mg/dL (7-20) Creatinine 0.8 mg/dL (0.6-1.0) Estimated GFR (Cockcroft-Gault) 68.7 BUN/Creatinine Ratio 29 (6-20) Glucose Level 106 mg/dL (70-99) Calcium Level 8.1 mg/dL (8.5-10.1) Total Bilirubin 0.5 mg/dL (0.2-1.0) Aspartate Amino Transf (AST/SGOT) 26 U/L (15-37) Alanine Aminotransferase (ALT/SGPT) 19 U/L (14-59) Alkaline Phosphatase 55 U/L (46-116) Total Protein 5.8 g/dL (6.4-8.2) Albumin 2.8 g/dL (3.4-5.0) Albumin/Globulin Ratio 0.9 (1.0-1.7) Medications Current Medications Ondansetron HCl (Zofran) 4 mg STK-MED ONCE .ROUTE ; Start 05/22/19 at 02:57; Stop 05/22/19 at 02:58; Status DC Sodium Chloride 1,000 ml @ 1,000 mls/hr 1X ONCE IV Last administered on 05/22/19at 03:00; Start 05/22/19 at 03:30; Stop 05/22/19 at 04:29; Status DC Ondansetron HCl (Zofran) 4 mg 1X ONCE IVP Last administered on 05/22/19at 03:00; Start 05/22/19 at 03:30; Stop 05/22/19 at 03:31; Status DC Ketorolac Tromethamine (Toradol 30mg Vial) 30 mg 1X ONCE IV ; Start 05/22/19 at 04:00; Stop 05/22/19 at 03:56; Status DC Ondansetron HCl (Zofran) 4 mg 1X ONCE IV Last administered on 05/22/19at 04:21; Start 05/22/19 at 04:00; Stop 05/22/19 at 04:01; Status DC Ondansetron HCl (Zofran) 4 mg PRN Q8HRS PRN IV NAUSEA/VOMITING 1ST CHOICE; Start 05/22/19 at 05:00; Stop 05/22/19 at 13:39; Status DC Lorazepam (Ativan Inj) 0.5 mg 1X ONCE IVP Last administered on 05/22/19at 05:22; Start 05/22/19 at 05:30; Stop 05/22/19 at 05:31; Status DC Lorazepam (Ativan Inj) 2 mg STK-MED ONCE .ROUTE ; Start 05/22/19 at 05:16; Stop 05/22/19 at 05:17; Status DC Pantoprazole Sodium (PROTONIX VIAL for IV PUSH) 40 mg DAILYAC IVP Last administered on 05/22/19at 11:06; Start 05/22/19 at 09:30; Stop 05/22/19 at 13:36; Status DC Polyethylene Glycol (miraLAX PACKET) 17 gm PRN DAILY PRN PO CONSTIPATION; Start 05/22/19 at 09:30 Atorvastatin Calcium (Lipitor) 20 mg QHS PO ; Start 05/23/19 at 21:00 Vitamin D (Vitamin D3) 1,000 unit DAILY PO Last administered on 05/22/19at 15:52; Start 05/22/19 at 14:00 Docusate Sodium (Colace) 100 mg DAILY PO Last administered on 05/22/19at 15:52; Start 05/22/19 at 14:00 Fluoxetine HCl (PROzac) 20 mg DAILY PO Last administered on 05/22/19at 15:52; Start 05/22/19 at 14:00 Hydrocortisone Acetate (Anucort-Hc) 25 mg BID RC Last administered on 05/22/19at 21:57; Start 05/22/19 at 21:00 Fish Oil (Fish Oil) 1,000 mg DAILY PO Last administered on 05/22/19at 15:52; Start 05/22/19 at 14:00 Calcium Carbonate/ Glycine (Oscal) 500 mg DAILY PO Last administered on 05/22/19at 15:52; Start 05/22/19 at 14:00 Non-Formulary Medication (Methylcellulose (Citrucel)) 500 mg DAILY PO ; Start 05/23/19 at 09:00; Status UNV Multivitamins (Thera M Plus) 1 tab DAILY PO Last administered on 05/22/19at 15:52; Start 05/22/19 at 14:00 Pantoprazole Sodium (Protonix) 40 mg DAILYAC PO ; Start 05/23/19 at 07:30 Psyllium Hydrophilic Mucilloid (Metamucil Fiber Packet) 1 pkt DAILY PO Last administered on 05/22/19at 15:52; Start 05/22/19 at 14:00 Non-Formulary Medication (Ubidecarenone (Coq-10)) 100 mg DAILY PO ; Start 05/23/19 at 09:00; Status UNV Sodium Chloride (Normal Saline Flush) 3 ml QSHIFT PRN IV AFTER MEDS AND BLOOD DRAWS; Start 05/22/19 at 13:45 Sodium Chloride 1,000 ml @ 65 mls/hr [id number] IV Last administered on 05/23/19at 05:58; Start 05/22/19 at 13:34 Ondansetron HCl (Zofran) 4 mg PRN Q4HRS PRN IV NAUSEA/VOMITING; Start 05/22/19 at 13:45 Acetaminophen (Tylenol) 650 mg PRN Q4HRS PRN PO TEMP OVER 100.4F OR MILD PAIN; Start 05/22/19 at 13:45 Clonidine HCl (Catapres) 0.1 mg PRN Q6HRS PRN PO SBP>160 OR DBP>90; Start at 13:45 Docusate Sodium (Colace) 100 mg PRN BID PRN PO CONSTIPATION; Start 05/22/19 at 13:45 Albuterol Sulfate (Ventolin Neb Soln) 2.5 mg PRN Q4HRS PRN NEB SHORTNESS OF BREATH; Start 05/22/19 at 13:45 Guaifenesin (Robitussin) 200 mg PRN Q4HRS PRN PO COUGH; Start 05/22/19 at 13:45 Lorazepam (Ativan) 0.5 mg PRN Q4HRS PRN PO ANXIETY / AGITATION; Start 05/22/19 at 13:45 Enoxaparin Sodium (Lovenox 40mg Syringe) 40 mg DAILY SQ Last administered on 05/22/19at 15:53; Start 05/22/19 at 14:00 Active Scripts Active Anusol-Hc (Hydrocortisone Acetate) 25 Mg Supp.rect 1 Supp RC BID Metamucil (Psyllium Husk) 0.52 Gm Capsule 0.52 Gm PO DAILY Reported Vitamin D3 (Cholecalciferol (Vitamin D3)) 1,000 Unit Tablet 1 Tab PO DAILY Calcium (Calcium Carbonate) 500 Mg Tab.chew 500 Mg PO DAILY Pv Fish Oil 1,000 Mg Softgel ([place]-3 Fatty Acids/Vitamin E) 1,000 Mg Capsule 1 Cap PO DAILY Colace (Docusate Sodium) 100 Mg Capsule 1 Cap PO DAILY Fluoxetine Hcl 20 Mg Capsule 1 Cap PO DAILY Citrucel (Methylcellulose) 500 Mg Tablet 500 Mg PO DAILY Coq-10 (Ubidecarenone) 100 Mg Capsule 100 Mg PO DAILY Atorvastatin Calcium 20 Mg Tablet 1 Tab PO DAILY Geritol Complete Tablet (Mv, Min #36/Iron,Carbonyl/Fa) 1 Each Tablet 1 Each PO DAILY Cranberry (Cranberry Fruit Concentrate) 450 Mg Tablet 450 Mg PO DAILY Omeprazole 20 Mg Tablet.dr 1 Tab PO DAILY Vitals/I & O Vital Sign - Last 24 Hours 05/22/19 05/22/19 05/22/19 05/22/19 15:00 19:00 20:20 23:04 Temp 98.0 99.1 98.4 98.0 99.1 98.4 Pulse 61 68 61 Resp 16 18 20 B/P (MAP) 98/65 (76) 113/38 (63) 106/32 (56) Pulse Ox 95 91 95 O2 Delivery Room Air Room Air Room Air Room Air 05/23/19 05/23/19 05/23/19 05/23/19 03:11 07:00 08:00 11:00 Temp 98.4 98.0 98.0 98.4 98.0 98.0 Pulse 72 62 62 Resp 20 20 20 B/P (MAP) 91/41 (58) 108/31 (56) 104/35 (58) Pulse Ox 92 90 100 O2 Delivery Room Air Room Air Room Air Room Air O2 Flow Rate 2.0 Intake and Output 05/22/19 05/22/19 05/23/19 15:00 23:00 07:00 Intake Total 1000 ml Balance 1000 ml Problem List Problems Medical Problems: (1) Intractable nausea and vomiting Status: Acute Assessment N/V- most likely self -limited gastroenteritis, discharge per primary NILSON GOMEZ MD May 23, 2019 13:22
--- NOTE | 2019-05-23 14:39 | NUR ---
Discharge Note: JAKOB GARNER J[facility] Discharge instructions and discharge home medications reviewed with Patient and a copy given. All questions have been answered and understanding verbalized. The following instructions and handouts were given: N/V Discontinued lines and drains: Peripheral IV intact. Patient discharged to Home or Self Care with Family Member via Wheelchair
[2019-05-23] MEDS ORDERED: ATORVASTATIN CALCIUM 20 MG TABLET PO SCH (21:00)
== END 2019-05-23 14:42 | disposition home or self-care (01) | DRG 392 ==
LOC: ER 02:40 → 5 SOUTH 04:47
PROVIDERS: ADMIT Internal Medicine; ATTEND Internal Medicine
DX: K52.9 Noninfective gastroenteritis and colitis, unspecified (principal); E78.00 Pure hypercholesterolemia, unspecified; E78.5 Hyperlipidemia, unspecified; F17.210 Nicotine dependence, cigarettes, uncomplicated; I10 Essential (primary) hypertension; J45.909 Unspecified asthma, uncomplicated; K21.9 Gastro-esophageal reflux disease without esophagitis; K64.9 Unspecified hemorrhoids; N20.0 Calculus of kidney; Z82.49 Family history of ischemic heart disease and other diseases of the circulatory system; Z82.5 Family history of asthma and other chronic lower respiratory diseases; Z87.11 Personal history of peptic ulcer disease; Z87.442 Personal history of urinary calculi; Z90.49 Acquired absence of other specified parts of digestive tract; Z91.041 Radiographic dye allergy status; F32.9 Major depressive disorder, single episode, unspecified; K21.0 Gastro-esophageal reflux disease with esophagitis; Z85.828 Personal history of other malignant neoplasm of skin
CPT/HCPCS: 36415; 74018; 74176; 80053; 81001; 85007; 85025; 87040; C9113; J1650; J2060; J2405; J7030; G0378